=== PATIENT | male | born 1940 | race Caucasian/White ===

== ENCOUNTER → 2019-07-14 | Outpatient (CLI) | payer OTHER ==
[2019-07-14 14:15] VITALS: BP 165/69
--- NOTE | 2019-07-15 10:00 | LINQ ---
[facility] [address] [place] [address] LINQ PROCEDURE REPORT Name: JENIMARIAMA Cano [id number] Admission: 07/14/19 Attend Phys: Kirill Martinez Discharge: Date of : 40 Report #: [id number] THIS REPORT FOR: //name// APPROVED REPORT Study performed: 07/14/2019 16:24:29 Patient Status: Out-Patient Room #: Event Personnel: Kirill Fuentes MD Exam: Loop Recorder Implant Indications: Syncope Implanted Devices: [employer]: CONFIRM Rx; Reference # [id number]; SN: [id number]; Use before: 2020-10-08 Procedure The patient underwent informed consent. We discussed the details of the procedure including the risks, which include, but not limited to bleeding, infection, vascular damage, cardiac perforation, and pneumothorax. After informed consent was obtained the patient was brought to the cardiac catheterization laboratory prep and hold. The chest was prepped and draped in usual sterile manner. Utilizing 1% lidocaine the proposed incision site was instilled and a tract was anesthetized across the chest and between the ribs. Utilizing 11 blade a small incision was made and utilizing both sharp and blunt dissection a tract was developed. The devices and deployed with his appointment total without difficulty. Subcutaneous tissue was closed with 2 simple interrupted 30 sutures and skin was closed with a running subcuticular. Steri-Strips 4 x 4 OpSite were utilized. Patient tolerated procedure well with no complications. Electrode Parameters Parameters were satisfactory at 0.6 mV Conclusion 1. Successful implantation of a [employer] implantable loop recorder Recommendations 1. Routine post implantation protocol <ELECTRONICALLY SIGNED> By: Kirill Fuentes MD 07/15/19 1000 1000 1000 Kirill Fuentes MD /INF
== END | disposition home or self-care (01) ==
LOC: CATH 11:16
DX: R55 Syncope and collapse (principal); Z88.8 Allergy status to other drugs, medicaments and biological substances

== ENCOUNTER 2019-09-25 09:08 | Emergency (ER) | payer OTHER ==
[~2019-09-25] VITALS: Ht 175.3 cm; Wt 75.8 kg
[2019-09-25] MEDS ORDERED: AUTOJECT 21 EACH SUBQ (10:03)
[2019-09-25] MEDS ORDERED: VOLTAREN GEL 1100 G1 TOP (11:28)
[2019-09-25 11:52] VITALS: BP 162/72
== END 2019-09-25 11:53 | disposition home or self-care (01) ==
LOC: ER 09:08
DX: S29.012A Strain of muscle and tendon of back wall of thorax, initial encounter (principal); I10 Essential (primary) hypertension; F17.210 Nicotine dependence, cigarettes, uncomplicated; Z91.048 Other nonmedicinal substance allergy status; Z88.6 Allergy status to analgesic agent; Z88.8 Allergy status to other drugs, medicaments and biological substances; X50.9XXA Other and unspecified overexertion or strenuous movements or postures, initial encounter; Y93.89 Activity, other specified; Y92.89 Other specified places as the place of occurrence of the external cause; Y99.8 Other external cause status

== ENCOUNTER → 2020-03-16 | Outpatient (CLI) | payer OTHER ==
[~2020-03-16] MED LIST: AUTOJECT 21 EACH SUBQ; VOLTAREN GEL 1100 G1 TOP
== END ==
LOC: SJCVCIMAG 13:03
PROVIDERS: ATTEND Internal Medicine
DX: R94.31 Abnormal electrocardiogram [ECG] [EKG] (principal); I69.398 Other sequelae of cerebral infarction; H53.9 Unspecified visual disturbance; I10 Essential (primary) hypertension; E78.5 Hyperlipidemia, unspecified; E11.9 Type 2 diabetes mellitus without complications; F17.200 Nicotine dependence, unspecified, uncomplicated; Z79.899 Other long term (current) drug therapy